=== PATIENT | male | born 1980 | race African-American/Black ===

== ENCOUNTER 2021-06-19 08:43 | Emergency (ER) | payer MEDICARE, OTHER ==
[~2021-06-19] VITALS: Ht 185.4 cm; Wt 127.0 kg
[~2021-06-19 08:43] MED LIST: CIPR500T94 PO; DOXY100T PO; HYDR-3164 PO; Hydrochlorothiazide PO; IBUP-1060 PO; Ibuprofen PO; LISI10TA PO
[2021-06-19] MEDS ORDERED: METOPROLOL IV PUSH 5 MG/5 ML VIAL. IVP ONE (09:15)
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
[2021-06-19] MEDS ORDERED: MORPHINE SULFATE 4 MG/ML INJ. IVP ONE (09:45)
[2021-06-19 09:58] LABS: BASO % 0 % (0-3); EOS # 0.2 x10^3/uL (0.0-0.7); EOS % 2 % (0-3); HEMATOCRIT 35.9 % (39.0-53.0); HEMOGLOBIN 12.2 g/dL (13.0-17.5); LYMPH # 1.9 x10^3/uL (1.0-4.8); LYMPH % 19 % (24-48); MEAN CORPUSCULAR HEMOGLOBIN 27 pg (25-35); MEAN CORPUSCULAR HGB CONC 34 g/dL (31-37); MEAN CORPUSCULAR VOLUME 80 fL (79-100); MONO # 0.6 x10^3/uL (0.0-1.1); MONO % 6 % (0-9); NEUT # 7.3 x10^3/uL (1.8-7.7); NEUT % 72 % (31-73); PLATELET COUNT 407 x10^3/uL (140-400); RED BLOOD COUNT 4.47 x10^6/uL (4.30-5.70); RED CELL DISTRIBUTION WIDTH 14.2 % (11.5-14.5); WHITE BLOOD COUNT 10.1 x10^3/uL (4.0-11.0)
[2021-06-19 10:04] LABS: CALCIUM 9.5 mg/dL (8.5-10.1); CREATININE 1.3 mg/dL (0.7-1.3); GFR 73.6; POTASSIUM 4.1 mmol/L (3.5-5.1)
[2021-06-19 10:12] LABS: ALBUMIN 3.2 g/dL (3.4-5.0); ALBUMIN/GLOBULIN RATIO 0.5 (1.0-1.7); MAGNESIUM 1.8 mg/dL (1.8-2.4); TOTAL BILIRUBIN 0.4 mg/dL (0.2-1.0); TOTAL PROTEIN 9.3 g/dL (6.4-8.2)
--- NOTE | 2021-06-19 10:23 | RAD ---
EXAM: Chest, single view. HISTORY: Chest pain. COMPARISON: 11/08/2014. FINDINGS: A frontal view of the chest is obtained. There is linear left lower lobe opacity likely due to atelectasis. There is no consolidation, pleural effusion or pneumothorax. The heart is normal in size for portable technique. IMPRESSION: Suspected linear left lower lobe atelectasis. Electronically signed by: Ria Richards MD (06/19/2021 10:20 AM) [id number]
[2021-06-19] MEDS ORDERED: IOHEXOL 350 MG/ML 100 ML VIAL. IV ONE (12:00)
[2021-06-19] MEDS ORDERED: CONTRAST GIVEN. MC PRN (12:00)
--- NOTE | 2021-06-19 12:35 | RAD ---
CTA OF THE CHEST WITH AND WITHOUT CONTRAST CTA OF THE ABDOMEN WITH AND WITHOUT CONTRAST Clinical indications: Chest pain and back pain. Hypertension. Possible dissection. Technique: Noncontrast helical CT scanning of the chest and abdomen through the iliac crests and aort ic bifurcation was performed. After IV infusion of 100 cc of Omnipaque 350, helical CT scanning of th e chest and abdomen through the iliac crests and aortic bifurcation was performed using the CTA thora cic/abdominal aortic protocol. Coronal and sagittal MIP reconstructions were generated. Using a MIP a lgorithm, a 3-D reconstruction of the thoracic and abdominal aorta was generated. PQRS compliance Statement One or more of the following individualized dose reduction techniques were utilized for this study: 1. Automated exposure control 2. Adjustment of the mA and/or kV according to patient size 3. Use of iterative reconstruction technique Comparison: November 08, 2014 CT of the chest. CHEST CTA: Opacification of the pulmonary arteries is not optimal to evaluate for pulmonary embolism. The study was performed for thoracic aorta evaluation. No focal aneurysmal dilatation or dissection/ intimal flap of the thoracic aorta is seen. Normal enhancement of the brachiocephalic artery and subc lavian arteries and proximal common carotid arteries is seen. Heart size is normal and no pericardial effusion is seen. No enlarged thoracic lymphadenopathy is seen. Linear atelectasis of both lower lob es and the inferior segment of the lingula of the left upper lobe is seen. No lung consolidation with air bronchograms or lung mass is seen otherwise. No pleural effusion or pneumothorax is seen. The pr oximal bronchial tree is patent. No lytic process or compression fracture is seen. IMPRESSION: No thoracic aortic dissection or aneurysm is seen. Bilateral lower lobe and lingular atelectasis. ABDOMEN CTA: The liver and spleen and pancreas and gallbladder are normal. No extrahepatic biliary du ctal dilatation is seen. No adrenal mass is evident. Both kidneys are normal without hydronephrosis. No focal aneurysmal dilatation or dissection or intimal flap of the abdominal aorta is seen. No signi ficant stenosis of the abdominal aorta is seen. Celiac artery and superior mesenteric artery and infe rior mesenteric artery and both main renal arteries enhance normally. No abnormally enlarged retroper itoneal lymphadenopathy is evident. Leandro hepatis lymph nodes are apparent. The largest lymph node me asures 32 mm in size seen on series 5 and image 109. This area is not completely seen on the previous CT study in 2013. However, another lymph node is seen anterior to the hepatic artery measuring 19 mm in size and was seen previously and is unchanged. Series [address] through the pelvis. T here are bilateral inguinal lymph nodes present seen best on series 11 and images 222 and 223. The la rgest on the left measures 25 mm in size. Largest on the right measures 24 mm in size. Small obturato r internus lymph nodes are seen bilaterally on image 185 measuring 25 mm on each side in AP dimension but only 8 mm transversely. No enlarged mesenteric lymphadenopathy is seen. IVC filter is apparent. No obstructive bowel pattern is seen. The appendix is normal. Terminal ileum is unremarkable. No free air or free fluid or mesenteric edema is seen. No lytic process is seen. No compression fracture of the lumbar spine is seen. IMPRESSION: No abdominal aortic dissection or aneurysm or stenosis is seen. Leandro hepatis lymph nodes and bilateral pelvic lymph nodes. Recommend short-term follow-up abdomen an d pelvis CT with IV contrast in 3-4 months to ensure stability. No acute abnormality of the abdomen or pelvis is seen. Electronically signed by: Gopal Santos MD (06/19/2021 12:33 PM) [id number]
[2021-06-19 13:25] VITALS: BP 190/118
[2021-06-19] MEDS ORDERED: LISI-130 PO (13:42)
[2021-06-19] MEDS ORDERED: NAPR-682 PO (13:42)
--- NOTE | 2021-06-19 13:59 | EKG ---
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
--- NOTE | 2021-06-19 14:00 | EKG ---
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
== END 2021-06-19 14:09 | disposition home or self-care (01) ==
LOC: ER 08:43
DX: I10 Essential (primary) hypertension (principal); M54.6 Pain in thoracic spine; G89.29 Other chronic pain; Z87.891 Personal history of nicotine dependence
CPT/HCPCS: 36415; 71045; 71275; 74175; 80053; 83690; 83735; 83880; 84484; 85025; 93005; 96374; 96375; 99285; J2270; J3490

== ENCOUNTER 2021-09-24 07:43 | Inpatient (IN) | payer MEDICARE, MEDICAID ==
[~2021-09-24] VITALS: Ht 182.9 cm; Wt 136.0 kg
[~2021-09-24 07:43] MED LIST changes: +LISI-130 PO; +NAPR-682 PO
[2021-09-24] MEDS ORDERED: MORPHINE SULFATE 10 MG/ML VIAL. IVP ONE (08:15)
[2021-09-24] MEDS ORDERED: KETOROLAC 15 MG/ML VIAL. IVP ONE (08:15)
[2021-09-24 08:19] LABS: BASO # 0.1 x10^3/uL (0.0-0.2); BASO % 1 % (0-3); EOS # 0.1 x10^3/uL (0.0-0.7); EOS % 1 % (0-3); HEMATOCRIT 31.4 % (39.0-53.0); HEMOGLOBIN 10.5 g/dL (13.0-17.5); LYMPH # 2.7 x10^3/uL (1.0-4.8); LYMPH % 15 % (24-48); MEAN CORPUSCULAR HEMOGLOBIN 26 pg (25-35); MEAN CORPUSCULAR HGB CONC 33 g/dL (31-37); MEAN CORPUSCULAR VOLUME 78 fL (79-100); MONO # 1.5 x10^3/uL (0.0-1.1); MONO % 8 % (0-9); NEUT # 13.6 x10^3/uL (1.8-7.7); NEUT % 75 % (31-73); PLATELET COUNT 588 x10^3/uL (140-400); RED BLOOD COUNT 4.05 x10^6/uL (4.30-5.70); RED CELL DISTRIBUTION WIDTH 14.4 % (11.5-14.5); WHITE BLOOD COUNT 18.1 x10^3/uL (4.0-11.0)
--- NOTE | 2021-09-24 08:27 | RAD ---
EXAM: XR CHEST 1V 09/24/2021 8:05 AM CLINICAL INDICATION: Edema, tachycardia COMPARISON: Chest radiograph 06/19/2021 TECHNIQUE: AP view of the chest FINDINGS: Heart is normal in size. Lungs are hypoexpanded. There are increased left basilar opacitie s. There are linear opacities in the right lung base. No pleural effusion or pneumothorax. No acute o sseous abnormality IMPRESSION: Increased left basilar opacities could be atelectasis or pneumonia. Linear opacities at t he right lung base are likely atelectasis. Electronically signed by: Davina Spencer MD (09/24/2021 8:24 AM) [id number]
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
--- NOTE | 2021-09-24 08:59 | EKG ---
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
[2021-09-24 10:03] LABS: CALCIUM 9.7 mg/dL (8.5-10.1); CREATININE 1.4 mg/dL (0.7-1.3); GFR 67.6; POTASSIUM 4.2 mmol/L (3.5-5.1)
[2021-09-24 10:09] LABS: ALBUMIN 2.4 g/dL (3.4-5.0); ALBUMIN/GLOBULIN RATIO 0.4 (1.0-1.7); TOTAL BILIRUBIN 1.2 mg/dL (0.2-1.0); TOTAL PROTEIN 8.9 g/dL (6.4-8.2)
[2021-09-24] MEDS ORDERED: FUROSEMIDE 40 MG/4 ML VIAL. IVP ONE (10:15)
[2021-09-24] MEDS ORDERED: ACETAMINOPHEN 325 MG TABLET. PO PRN ×2 (10:15→14:30)
[2021-09-24] MEDS ORDERED: HYDROmorphone 2 MG/ML VIAL IVP ONE (10:15)
[2021-09-24] MEDS ORDERED: cefTRIAXone IV Push 1 GM VIAL. IVP ONE (10:15)
[2021-09-24] MEDS ORDERED: MORPHINE SULFATE 4 MG/ML INJ. IVP PRN (10:15)
[2021-09-24] MEDS ORDERED: AZITHRMYCN 500MG IVPB FOR OMNI 250 ML IV ONE (10:15)
[2021-09-24] MEDS ORDERED: ONDANSETRON PF 4 MG/2 ML VIAL. IVP PRN ×2 (10:15→14:30)
[2021-09-24] MEDS ORDERED: cefTRIAXone IV Push 2 GM VIAL. IVP ONE (10:30)
[2021-09-24] MEDS ORDERED: IOHEXOL 300 MG/ML 100ML VIAL. IV ONE (11:00)
[2021-09-24] MEDS ORDERED: CONTRAST GIVEN. MC PRN (11:00)
--- NOTE | 2021-09-24 11:47 | RAD ---
CT LUMBAR SPINE W History: Back pain Technique: CT of the lumbar spine with intravenous contrast. Multiplanar reconstructions were perform ed. Comparison: CT angiogram chest, abdomen and pelvis 06/19/2021 Findings: There are 5 nonrib-bearing lumbar type vertebral bodies. Straightening of the normal lumbar lordosis. No spondylolisthesis. No vertebral body height loss. No fractures identified. There is facet hypertr ophy throughout the lower thoracic spine with moderate or greater foraminal stenosis at T10-T11 on th e left and T11-T12 on the right. There is a partially visualized infrarenal IVC filter. The paraspinal soft tissues are otherwise unre markable. T12-L1: Right greater than left facet hypertrophy. No significant spinal canal or neural foraminal st enosis. L1-L2: Minimal facet hypertrophy. No significant spinal canal or neural foraminal stenosis. L2-L3: Right greater than left facet hypertrophy causes moderate right and mild left neural foraminal stenosis. L3-L4: Mild disc space narrowing and left greater than right facet hypertrophy. Asymmetric right fora scott disc protrusion. Severe right neural foraminal and moderate to severe left neural foraminal diana rowing. L4-L5: Relatively preserved disc height. Small circumferential disc bulge with bilateral facet hypert rophy. Severe bilateral neural foraminal stenosis. L5-S1: Severe disc height loss and bilateral facet hypertrophy cause severe bilateral neural foramina l stenosis. Impression: 1. Advanced multilevel facet disease with degenerative disc disease relatively limited at L5-S1. Mod erate or greater neural foraminal stenoses at multiple levels bilaterally with potential for symptoma tic impingement of the exiting nerve roots. Correlate with radicular symptoms. Consider MRI lumbar sp ine for further evaluation. 2. No acute osseous abnormality identified in the lumbar spine. Exposure: One or more of the following individualized dose reduction techniques were utilized for thi s examination: 1. Automated exposure control 2. Adjustment of the mA and/or kV according to patient size 3. Use of iterative reconstruction technique. Electronically signed by: Raj Zamora MD (09/24/2021 11:45 AM) [id number]
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
[2021-09-24] MEDS ORDERED: PROCHLORPERAZINE 10 MG/2 ML VIAL. IV PRN (14:30)
[2021-09-24] MEDS ORDERED: ZOLPIDEM 5 MG TABLET. PO PRN (14:30)
[2021-09-24] MEDS ORDERED: DOCUSATE SODIUM 100 MG CAPSULE. PO PRN (14:30)
[2021-09-24] MEDS ORDERED: SENNOSIDES 8.6 MG TABLET PO PRN (14:30)
[2021-09-24] MEDS ORDERED: DEXTROSE 50% 25 GM / 50ML DISP.SYRIN. IV PRN (14:30)
[2021-09-24] MEDS ORDERED: oxyCODONE/APAP 5/325 1 TAB TABLET PO PRN (14:30)
[2021-09-24] MEDS ORDERED: LORazepam 0.5 MG TABLET PO PRN (14:30)
[2021-09-24] MEDS: IV NORMAL SALINE 1000ML BAG 1,000 ML IV SCH ×2 (14:43→23:50)
[2021-09-24] MEDS: ENOXAPARIN 40 MG/0.4 ML SYRINGE. SQ SCH (14:45)
[2021-09-24] MEDS: predniSONE 10 MG TABLET PO SCH (14:45)
[2021-09-24 15:00] VITALS: BP 141/81
[2021-09-24 15:54] LABS: BILIRUBIN,URINE NEGATIVE (NEG); CLARITY,URINE CLEAR; COLOR,URINE YELLOW; NITRITE,URINE NEGATIVE (NEG); PROTEIN,URINE 30 mg/dL (NEG-TRACE)
[2021-09-24] MEDS ORDERED: ALLO300T PO (16:06)
[2021-09-24 16:08] LABS: HYALINE CASTS, URINE FEW /HPF
[2021-09-24] MEDS: PANTOPRAZOLE IV PUSH 40 MG VIAL. IVP SCH (16:08)
[2021-09-24 16:09] LABS: BACTERIA,URINE 0 /HPF (0-FEW)
[2021-09-24] MEDS: oxyCODONE/APAP 5/325 1 TAB TABLET PO PRN ×2 (16:14→20:22)
--- NOTE | 2021-09-24 17:16 | RAD ---
XR SHOULDER_LEFT 2+ VIEWS History: Frozen shoulder. Comparison: None. Technique: 3 views the left shoulder. Findings: Osseous mineralization is normal. No acute fracture or dislocaton. Mild degenerative changes of the a cromioclavicular and glenohumeral joints. The subacromial space is preserved. There is subtle calcifi cation in the region of the superior labrum versus biceps anchor or rotator cuff myotendinous junctio ns. Hazy opacification of the left upper lobe. Impression: 1. Degenerative changes without acute osseous abnormality of the left shoulder. 2. Hazy opacification left upper lobe may be due to hypoventilation or edema/infiltrate. Electronically signed by: Raj Zamora MD (09/24/2021 5:14 PM) [id number]
[2021-09-24 19:00] VITALS: BP 126/74
[2021-09-24 23:25] VITALS: BP 133/78
[2021-09-25] MEDS: ENOXAPARIN 40 MG/0.4 ML SYRINGE. SQ SCH ×2 (03:15→13:50)
[2021-09-25 03:41] VITALS: BP 127/85
[2021-09-25 07:00] VITALS: BP 136/81
[2021-09-25] MEDS: cefTRIAXone IV Push 1 GM VIAL. IVP SCH (08:18)
[2021-09-25] MEDS: PANTOPRAZOLE IV PUSH 40 MG VIAL. IVP SCH (08:18)
[2021-09-25] MEDS: predniSONE 10 MG TABLET PO SCH (08:18)
[2021-09-25 08:22] LABS: CALCIUM 9.2 mg/dL (8.5-10.1); CREATININE 1.3 mg/dL (0.7-1.3); GFR 73.6; MAGNESIUM 2.1 mg/dL (1.8-2.4); PHOSPHORUS 4.8 mg/dL (2.6-4.7); POTASSIUM 4.2 mmol/L (3.5-5.1)
[2021-09-25 08:50] LABS: BASO % 0 % (0-3); EOS % 0 % (0-3); HEMATOCRIT 27.2 % (39.0-53.0); HEMOGLOBIN 8.7 g/dL (13.0-17.5); LYMPH # 1.4 x10^3/uL (1.0-4.8); LYMPH % 11 % (24-48); MEAN CORPUSCULAR HEMOGLOBIN 25 pg (25-35); MEAN CORPUSCULAR HGB CONC 32 g/dL (31-37); MEAN CORPUSCULAR VOLUME 79 fL (79-100); MONO # 1.2 x10^3/uL (0.0-1.1); MONO % 10 % (0-9); NEUT % 79 % (31-73); PLATELET COUNT 473 x10^3/uL (140-400); RED BLOOD COUNT 3.45 x10^6/uL (4.30-5.70); RED CELL DISTRIBUTION WIDTH 14.3 % (11.5-14.5); WHITE BLOOD COUNT 12.7 x10^3/uL (4.0-11.0)
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
[2021-09-25 11:00] VITALS: BP 139/81
[2021-09-25] MEDS: IV NORMAL SALINE 1000ML BAG 1,000 ML IV SCH (11:12)
[2021-09-25] MEDS: AZITHROMYCIN 500 MG in IV NORMAL SALINE 250ML 250 ML IV SCH (11:12)
[2021-09-25 15:00] VITALS: BP 136/87
[2021-09-25] MEDS: oxyCODONE/APAP 5/325 1 TAB TABLET PO PRN ×2 (15:40→20:48)
[2021-09-25 19:00] VITALS: BP 135/86
[2021-09-25] MEDS: LACTOBACILLUS RHAMNOSUS GG 1 CAPSULE. PO SCH (20:48)
[2021-09-25 23:00] VITALS: BP 145/86
[2021-09-26] MEDS: ENOXAPARIN 40 MG/0.4 ML SYRINGE. SQ SCH ×2 (02:45→13:58)
[2021-09-26 03:00] VITALS: BP 136/94
[2021-09-26 07:17] VITALS: BP 163/104
[2021-09-26] MEDS: PANTOPRAZOLE IV PUSH 40 MG VIAL. IVP SCH (07:18)
[2021-09-26] MEDS: oxyCODONE/APAP 5/325 1 TAB TABLET PO PRN ×2 (07:24→21:24)
[2021-09-26 07:55] LABS: CALCIUM 9.1 mg/dL (8.5-10.1); CREATININE 1.3 mg/dL (0.7-1.3); GFR 73.6; MAGNESIUM 1.9 mg/dL (1.8-2.4); POTASSIUM 3.7 mmol/L (3.5-5.1)
[2021-09-26 08:21] LABS: BASO # 0.1 x10^3/uL (0.0-0.2); BASO % 1 % (0-3); EOS # 0.1 x10^3/uL (0.0-0.7); EOS % 1 % (0-3); HEMATOCRIT 26.8 % (39.0-53.0); HEMOGLOBIN 8.9 g/dL (13.0-17.5); LYMPH % 17 % (24-48); MEAN CORPUSCULAR HEMOGLOBIN 26 pg (25-35); MEAN CORPUSCULAR HGB CONC 33 g/dL (31-37); MEAN CORPUSCULAR VOLUME 78 fL (79-100); MONO % 8 % (0-9); NEUT # 8.7 x10^3/uL (1.8-7.7); NEUT % 74 % (31-73); PLATELET COUNT 515 x10^3/uL (140-400); RED BLOOD COUNT 3.42 x10^6/uL (4.30-5.70); RED CELL DISTRIBUTION WIDTH 14.3 % (11.5-14.5); WHITE BLOOD COUNT 11.9 x10^3/uL (4.0-11.0)
[2021-09-26] MEDS: cefTRIAXone IV Push 1 GM VIAL. IVP SCH (10:10)
[2021-09-26] MEDS: LACTOBACILLUS RHAMNOSUS GG 1 CAPSULE. PO SCH ×2 (10:10→21:23)
[2021-09-26] MEDS: predniSONE 10 MG TABLET PO SCH (10:10)
[2021-09-26 11:00] VITALS: BP 139/88
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
[2021-09-26] MEDS: AZITHROMYCIN 500 MG in IV NORMAL SALINE 250ML 250 ML IV SCH (11:21)
[2021-09-26] MEDS: ALLOPURINOL 300 MG TABLET. PO SCH (12:37)
[2021-09-26] MEDS: LISINOPRIL 20 MG TABLET PO SCH (12:38)
[2021-09-26 14:22] VITALS: BP 141/93
[2021-09-26 19:00] VITALS: BP 140/94
[2021-09-26 23:00] VITALS: BP 138/86
[2021-09-27 03:00] VITALS: BP 142/92
[2021-09-27] MEDS: ENOXAPARIN 40 MG/0.4 ML SYRINGE. SQ SCH ×2 (05:33→15:33)
[2021-09-27 06:09] LABS: CALCIUM 9.2 mg/dL (8.5-10.1); CREATININE 1.3 mg/dL (0.7-1.3); GFR 73.6; MAGNESIUM 1.9 mg/dL (1.8-2.4); POTASSIUM 3.8 mmol/L (3.5-5.1)
[2021-09-27 06:39] LABS: BASO % 0 % (0-3); EOS # 0.1 x10^3/uL (0.0-0.7); EOS % 1 % (0-3); HEMATOCRIT 28.2 % (39.0-53.0); HEMOGLOBIN 9.2 g/dL (13.0-17.5); LYMPH % 13 % (24-48); MEAN CORPUSCULAR HEMOGLOBIN 25 pg (25-35); MEAN CORPUSCULAR HGB CONC 32 g/dL (31-37); MEAN CORPUSCULAR VOLUME 78 fL (79-100); MONO # 1.1 x10^3/uL (0.0-1.1); MONO % 13 % (0-9); NEUT # 5.7 x10^3/uL (1.8-7.7); NEUT % 73 % (31-73); PLATELET COUNT 492 x10^3/uL (140-400); RED BLOOD COUNT 3.62 x10^6/uL (4.30-5.70); RED CELL DISTRIBUTION WIDTH 14.1 % (11.5-14.5); WHITE BLOOD COUNT 7.9 x10^3/uL (4.0-11.0)
[2021-09-27 07:00] VITALS: BP 158/103
[2021-09-27] MEDS: ALLOPURINOL 300 MG TABLET. PO SCH (10:20)
[2021-09-27] MEDS: LISINOPRIL 20 MG TABLET PO SCH (10:20)
[2021-09-27] MEDS: LACTOBACILLUS RHAMNOSUS GG 1 CAPSULE. PO SCH ×2 (10:20→21:28)
[2021-09-27] MEDS: predniSONE 10 MG TABLET PO SCH (10:21)
[2021-09-27] MEDS: cefTRIAXone IV Push 1 GM VIAL. IVP SCH (10:21)
[2021-09-27] MEDS: PANTOPRAZOLE IV PUSH 40 MG VIAL. IVP SCH (10:21)
[2021-09-27] MEDS: hydroCHLOROthiazide 25 MG TABLET PO SCH (10:21)
[2021-09-27] MEDS: AZITHROMYCIN 500 MG in IV NORMAL SALINE 250ML 250 ML IV SCH (10:22)
[2021-09-27 11:00] VITALS: BP 155/112
[2021-09-27] MEDS: oxyCODONE/APAP 5/325 1 TAB TABLET PO PRN ×2 (11:06→21:29)
[2021-09-27 15:00] VITALS: BP 140/91
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
--- NOTE | 2021-09-27 16:01 | NUR ---
SW following. Discussed with RN, pt from home with spouse, room air, regular diet, COVID-19 negative. Therapy recommending SNF, pt declining. SW will discuss home health with patient. SW will continue to follow.
[2021-09-27 19:00] VITALS: BP 146/96
[2021-09-27 23:41] VITALS: BP 169/103
[2021-09-28 03:01] VITALS: BP 156/103
[2021-09-28 07:00] VITALS: BP 172/101
[2021-09-28] MEDS: ENOXAPARIN 40 MG/0.4 ML SYRINGE. SQ SCH (07:20)
[2021-09-28] MEDS: PANTOPRAZOLE IV PUSH 40 MG VIAL. IVP SCH (07:38)
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
[2021-09-28] MEDS ORDERED: AMLO-186 PO (08:41)
[2021-09-28] MEDS ORDERED: METH4TAB2 PO (08:41)
[2021-09-28] MEDS ORDERED: LORA0.5T96 PO (08:41)
[2021-09-28] MEDS ORDERED: OXYC1TAB15 PO (08:41)
--- NOTE | 2021-09-28 08:46 | SNU/HH DC ---
DISCHARGE WITH HOME HEALTH DISCHARGE INFORMATION: Final Diagnosis: Problems Medical Problems: (1) Back pain Status: Acute (2) Lymphedema Status: Acute (3) Pneumonia Status: Acute Condition on Discharge: Stable CODE STATUS: Code Status: Full HOME HEALTH: Face to Face: I certify this patient is under my care and that I, or a nurse practitioner or physician's assistant secretary working with me, had a face to face encounter that meets the physician face to face encounter requirements with this patient on []. Medical Complications: Other (Recent pneumonia/paraplegia) Nursing Home For: Assess Cardiopulm Status RN For Eval/Treatment: Yes Physical Therapy For: Evalulation/Treatment Occupational Therapy For: Evaluation/Treatment Home Health Aide For: Self-care MARINE MACHINIST For: Community Resources Pt Meets Homebound Status: Poor coordination w/ amb., Unsteady balance w/ amb, POST DISCHARGE ORDERS: Activity Instructions for Disc: Activity as tolerated Weight Bearing Status after Di: No restrictions DIET AFTER DISCHARGE: Cardiac CHECKS AFTER DISCHARGE: Checks after discharge: Check blood press - daily CERTIFICATION STATEMENT: Certification Statement: Certification Statement: Based on the above finding, I certify that this patient is confined to the home and needs intermittent shelter care, physical therapy and/or speech therapy, or continues to need occupational therapy.~ This patient is under my care, and I have initiated the establishment of the plan of care.~ This patient will be followed by myself or a community physician who will periodically review the plan of care. Home Meds Active Scripts Methylprednisolone (MEDROL) 4 Mg Tab.ds.pk, 1 PKG PO UD for ., #1 PKG Prov:CASTLE,NIAL K III DO 09/28/21 Lorazepam (ATIVAN) 0.5 Mg Tablet, 0.5 MG PO PRN Q6HRS PRN for ANXIETY / AGITATION for 10 Days, #20 TAB Prov:CASTLE,NIAL K III DO 09/28/21 Oxycodone/Apap 5-325 (PERCOCET 5-325 MG TABLET ) 1 Each Tablet, 1 TAB PO PRN Q4HRS PRN for MODERATE PAIN for 10 Days, #20 TAB Prov:CASTLE,NIAL K III DO 09/28/21 Amlodipine Besylate (AMLODIPINE BESYLATE) 5 Mg Tablet, 5 MG PO DAILY for . for 30 Days, #30 TAB Prov:CASTLE,NIAL K III DO 09/28/21 Naproxen Sodium (ANAPROX DS) 550 Mg Tablet, 1 TAB PO BID PRN for BACK PAIN for 15 Days, #30 TAB 0 Refills Prov:KULDEEP MONTEIRO DO 06/19/21 Lisinopril (LISINOPRIL) 40 Mg Tablet, 1 TAB PO DAILY, #30 TAB 2 Refills Prov:KULDEEP MONTEIRO DO 06/19/21 [Ibuprofen] 600 MG TABLET No Conflict Check, 600 MG PO TID, #30 Prov:ALLYSON GALO MD 10/14/15 [Hydrochlorothiazide] 25 MG TABLET No Conflict Check, 25 MG PO DAILY, #30 Prov:ALLYSON GALO MD 10/14/15 Hydrocodone/Apap 5-325 (NORCO 5-325 TABLET) 1 Each Tablet, 1-2 EACH PO PRN Q6HRS, #30 as needed for pain Prov:ALLYSON GALO MD 10/14/15 Ibuprofen (IBUPROFEN) 800 Mg Tablet, 800 MG PO PRN TID, #20 TAB take with food or milk to avoid upsetting stomach Prov:VIOLET TALAVERA MD 01/12/14 Reported Medications Allopurinol (ALLOPURINOL) 300 Mg Tablet, 300 MG PO DAILY for gout 09/24/21 Discontinued Scripts Lisinopril (PRINIVIL) 10 Mg Tablet, 10 MG PO DAILY, #30 Prov:ALLYSON GALO MD 10/14/15 Ciprofloxacin Hcl (CIPRO) 500 Mg Tablet, 1 TAB PO BID, #28 TAB Prov:ALLYSON GALO MD 10/14/15 Doxycycline Hyclate (DOXYCYCLINE HYCLATE) 100 Mg Tablet, 1 TAB PO BID, #28 TAB Prov:ALLYSON GALO MD 10/14/15 ANJU SINGH III DO Sep 28, 2021 08:46
[2021-09-28] MEDS ORDERED: CEFDINIR 300 MG CAPSULE PO SCH (09:00)
[2021-09-28] MEDS ORDERED: AZITHROMYCIN 250 MG TABLET. PO SCH (09:00)
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
[2021-09-28] MEDS: LACTOBACILLUS RHAMNOSUS GG 1 CAPSULE. PO SCH (10:24)
[2021-09-28] MEDS: LISINOPRIL 20 MG TABLET PO SCH (10:24)
[2021-09-28] MEDS: predniSONE 10 MG TABLET PO SCH (10:24)
[2021-09-28] MEDS: ALLOPURINOL 300 MG TABLET. PO SCH (10:24)
[2021-09-28] MEDS: hydroCHLOROthiazide 25 MG TABLET PO SCH (10:25)
[2021-09-28 11:00] VITALS: BP 171/113
[2021-09-28 15:44] VITALS: BP 151/112
--- NOTE | 2021-09-28 15:46 | NUR ---
Pt left unit at 1545 by wheelchair via private vehicle. Pt's IV removed without complication, VSS. Discharge paperwork discussed with pt and son at bedside. Additional questions addressed. Pt issued walker on discharge.
[2021-09-29] MEDS ORDERED: PANTOPRAZOLE 40 MG TABLET.DR. PO SCH (07:30)
== END 2021-09-28 15:54 | disposition home health service (06) | DRG 871 ==
LOC: ER 07:43 → 5 NORTH 10:15
PROVIDERS: ADMIT Internal Medicine; ATTEND Internal Medicine
DX: A41.9 Sepsis, unspecified organism (principal); J18.9 Pneumonia, unspecified organism; N17.0 Acute kidney failure with tubular necrosis; E87.1 Hypo-osmolality and hyponatremia; G82.20 Paraplegia, unspecified; Z68.41 Body mass index [BMI] 40.0-44.9, adult; E66.01 Morbid (severe) obesity due to excess calories; E86.9 Volume depletion, unspecified; E87.8 Other disorders of electrolyte and fluid balance, not elsewhere classified; G89.29 Other chronic pain; I10 Essential (primary) hypertension; I89.0 Lymphedema, not elsewhere classified; M1A.9XX0 Chronic gout, unspecified, without tophus (tophi); M47.819 Spondylosis without myelopathy or radiculopathy, site unspecified; M51.37 Other intervertebral disc degeneration, lumbosacral region; M75.00 Adhesive capsulitis of unspecified shoulder; E66.9 Obesity, unspecified
CPT/HCPCS: 36415; 71045; 72132; 73030; 80048; 80053; 81001; 83540; 83550; 83605; 83735; 83880; 84100; 84145; 84550; 85025; 87040; 87426; 87449; 93005; 96365; 96375; C9113; J0456; J0696; J1170; J1650; J1885; J1940; J2270; J7030; J7050; J7512; Q9967; U0003; U0005; 97530-GO; 97535-GO; 99285-25; G0378

== ENCOUNTER 2021-10-20 09:53 | Inpatient (IN) | payer MEDICARE, MEDICAID ==
[~2021-10-20] VITALS: Ht 188 cm; Wt 128.0 kg
[~2021-10-20 09:53] MED LIST changes: +ALLO300T PO; +AMLO-186 PO; +LORA0.5T96 PO; +METH4TAB2 PO; +OXYC1TAB15 PO
--- NOTE | 2021-10-20 10:53 | RAD ---
EXAM: AP View of the chest DATE: 10/20/2021 10:36 AM INDICATION: Reason: leg swelling / Spl. Instructions: / History: COMPARISON: No Prior FINDINGS: The heart is mildly enlarged. Mediastinal and hilar contours are normal. Patchy bilateral lung base airspace opacities likely consolidative process such as pneumonia. No pleural effusion or pneumothorax. IMPRESSION: 1. Patchy bilateral lung base airspace opacities likely consolidative process such as pneumonia. Electronically signed by: Scout Chang MD (10/20/2021 10:51 AM) [id number]
[2021-10-20 10:56] LABS: BASO # 0.1 x10^3/uL (0.0-0.2); BASO % 0 % (0-3); EOS % 0 % (0-3); HEMATOCRIT 27.4 % (39.0-53.0); LYMPH # 1.5 x10^3/uL (1.0-4.8); LYMPH % 11 % (24-48); MEAN CORPUSCULAR HEMOGLOBIN 25 pg (25-35); MEAN CORPUSCULAR HGB CONC 33 g/dL (31-37); MEAN CORPUSCULAR VOLUME 76 fL (79-100); MONO % 14 % (0-9); NEUT # 10.2 x10^3/uL (1.8-7.7); NEUT % 74 % (31-73); PLATELET COUNT 371 x10^3/uL (140-400); RED BLOOD COUNT 3.59 x10^6/uL (4.30-5.70); RED CELL DISTRIBUTION WIDTH 14.8 % (11.5-14.5); WHITE BLOOD COUNT 13.7 x10^3/uL (4.0-11.0)
[2021-10-20 11:08] LABS: CALCIUM 9.5 mg/dL (8.5-10.1); CREATININE 1.3 mg/dL (0.7-1.3); GFR 73.6; POTASSIUM 4.3 mmol/L (3.5-5.1)
[2021-10-20 11:14] LABS: ALBUMIN 1.9 g/dL (3.4-5.0); ALBUMIN/GLOBULIN RATIO 0.3 (1.0-1.7); TOTAL BILIRUBIN 1.4 mg/dL (0.2-1.0); TOTAL PROTEIN 8.5 g/dL (6.4-8.2)
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
[2021-10-20] MEDS ORDERED: IV NORMAL SALINE 1000ML BAG 1,000 ML IV ONE (11:30)
[2021-10-20 12:07] LABS: % BANDS 1 % (0-9); % BASOS 1 % (0-3); % EOS 1 % (0-5); % LYMPHS 9 % (24-48); % MONOS 12 % (0-10); % SEGS 76 % (35-66); PLT ESTIMATE ADEQUATE (ADEQUATE)
[2021-10-20 13:17] LABS: BILIRUBIN,URINE SMALL (NEG); CLARITY,URINE CLEAR; COLOR,URINE AMBER; NITRITE,URINE NEGATIVE (NEG); PROTEIN,URINE 100 mg/dL (NEG-TRACE)
[2021-10-20 13:22] LABS: BARBITURATES NEG (NEG); BENZODIAZEPINES NEG (NEG); CANNABINOIDS NEG (NEG); COCAINE NEG (NEG); METHADONE NEG (NEG); OPIATES NEG (NEG); PHENCYCLIDINE NEG (NEG)
[2021-10-20 13:28] LABS: AMPHETAMINE/METHAMPHETAMINE NEG (NEG)
[2021-10-20] MEDS ORDERED: cefTRIAXone IV Push 1 GM VIAL. IVP ONE (13:30)
[2021-10-20] MEDS ORDERED: AZITHRMYCN 500MG IVPB FOR OMNI 250 ML IV ONE (13:30)
[2021-10-20] MEDS ORDERED: VANCOMYCIN 1GM IVPB FOR OMNI 250 ML IV ONE (13:30)
[2021-10-20] MEDS ORDERED: ACETAMINOPHEN 500 MG TABLET PO ONE (13:30)
[2021-10-20 13:31] LABS: BACTERIA,URINE 0 /HPF (0-FEW); RBC,URINE 0 /HPF (0-2); WBC,URINE 0 /HPF (0-4)
[2021-10-20] MEDS ORDERED: fentaNYL PF VIAL 100 MCG/2 ML VIAL IVP ONE (13:45)
[2021-10-20] MEDS ORDERED: ACETAMINOPHEN 325 MG TABLET. PO PRN (13:45)
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
[2021-10-20] MEDS: IPRATRPIUM/ALBUTEROL 0.5/2.5MG 3 ML NEBU. NEB SCH (19:40)
[2021-10-20] MEDS ORDERED: NAPROXEN SODIUM PO PRN (20:45)
[2021-10-20] MEDS: IV NORMAL SALINE 1000ML BAG 1,000 ML IV SCH (21:10)
[2021-10-20] MEDS: LORazepam 0.5 MG TABLET PO PRN (21:11)
[2021-10-20] MEDS: IBUPROFEN 400 MG TABLET. PO PRN (21:11)
[2021-10-20] MEDS: HYDROcodone/APAP 5/325MG 1 TAB TABLET PO PRN (21:11)
[2021-10-20 22:57] VITALS: BP 100/69
[2021-10-21] MEDS: HYDROcodone/APAP 5/325MG 1 TAB TABLET PO PRN ×3 (06:00→21:41)
[2021-10-21 07:00] VITALS: BP 148/107
[2021-10-21] MEDS: IPRATRPIUM/ALBUTEROL 0.5/2.5MG 3 ML NEBU. NEB SCH ×4 (08:00→20:49)
[2021-10-21] MEDS: hydroCHLOROthiazide 25 MG TABLET PO SCH (09:41)
[2021-10-21] MEDS: ALLOPURINOL 300 MG TABLET. PO SCH (09:41)
[2021-10-21] MEDS: LISINOPRIL 20 MG TABLET PO SCH (09:41)
[2021-10-21 11:00] VITALS: BP 141/95
--- NOTE | 2021-10-21 11:50 | EKG ---
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
--- NOTE | 2021-10-21 11:57 | PDOC ---
[employer] PROGRESS NOTE Date of Service DOS: DATE: 10/21/21 TIME: 11:54 Chief Complaint Chief Complaint Pneumonia Hyponatremia Hypoalbuminemia History of Present Illness History of Present Illness 10/21/2021 Patient seen and examined Chart reviewed Discussed with RN Patient is feeling good today. Discussed his chronic LE lesions. Appear hyperkeratotic in nature. Vitals/I&O Vitals/I&O: Vital Signs Date Time Temp Pulse Resp B/P (MAP) Pulse Ox O2 Delivery O2 Flow Rate FiO2 10/21/21 09:41 95 148/107 10/21/21 07:00 97.4 18 93 Room Air 97.4 I & O 10/20/21 10/20/21 10/21/21 15:00 23:00 07:00 Intake Total 1500 ml Output Total 700 ml 400 ml Balance 1500 ml -700 ml -400 ml Physical Exam General: Alert, Cooperative, No acute distress Heart: Regular rate Lungs: Clear Abdomen: Normal bowel sounds Extremities: No clubbing Skin: Other (extensive bilateral LE hyperkeratotic lesions) Labs Labs: Laboratory Tests Test 10/20/21 12:07 10/20/21 13:00 10/20/21 20:19 10/21/21 08:19 SARS-CoV-2 RNA (DEBBIE) Negative (Negative) SARS-CoV-2 Antigen (Rapid) Negative (NEGATIVE) Urine Collection Type Unknown Urine Color Cassie Urine Clarity Clear Urine pH 6.0 (<5.0-8.0) Urine Specific [place] 1.015 (1.000-1.030) Urine Protein 100 mg/dL (NEG-TRACE) Urine Glucose (UA) Negative mg/dL (NEG) Urine Ketones (Stick) Negative mg/dL (NEG) Urine Blood Trace (NEG) Urine Nitrite Negative (NEG) Urine Bilirubin Small (NEG) Urine Urobilinogen Dipstick 1.0 mg/dL (0.2 mg/dL) Urine Leukocyte Esterase Negative (NEG) Urine RBC 0 /HPF (0-2) Urine WBC 0 /HPF (0-4) Urine Squamous Epithelial Cells Few /LPF Urine Bacteria 0 /HPF (0-FEW) Urine Mucus Slight /LPF Urine Opiates Screen Neg (NEG) Urine Methadone Screen Neg (NEG) Urine Barbiturates Neg (NEG) Urine Phencyclidine Screen Neg (NEG) Urine Amphetamine/Methamphetamine Neg (NEG) Urine Benzodiazepines Screen Neg (NEG) Urine Cocaine Screen Neg (NEG) Urine Cannabinoids Screen Neg (NEG) Urine Ethyl Alcohol Neg (NEG) Glucose (Fingerstick) 91 mg/dL (70-99) 88 mg/dL (70-99) Assessment and Plan Assessmemt and Plan Problems Medical Problems: (1) Hypoalbuminemia Status: Acute (2) Hyponatremia Status: Acute (3) Pneumonia Status: Acute Bilateral pneumonia Plan: IV abx breathing treatments supplemental oxygen PRN home meds DVT prophylaxis Full code Trend his labs IV normal saline. Comment Review of Relevant I have reviewed the following items keyla (where applicable) has been applied. Medications: Current Medications Medications (Trade) Dose Ordered Sig/Sharon Route PRN Reason Start Time Stop Time Status Last Admin Dose Admin Ceftriaxone Sodium (Rocephin) 1 gm 1X ONCE IVP 10/20/21 13:30 10/20/21 13:31 DC 10/20/21 13:30 Azithromycin 250 ml @ 250 mls/hr 1X ONCE IV 10/20/21 13:30 10/20/21 14:29 DC 10/20/21 13:30 Vancomycin HCl 250 ml @ 250 mls/hr 1X ONCE IV 10/20/21 13:30 10/20/21 14:29 DC 10/20/21 13:30 Acetaminophen (Tylenol) 1,000 mg 1X ONCE PO 10/20/21 13:30 10/20/21 13:31 DC 10/20/21 13:30 Fentanyl Citrate (Fentanyl 2ml Vial) 50 mcg 1X ONCE IVP 10/20/21 13:45 10/20/21 13:46 DC 10/20/21 13:45 Sodium Chloride 1,000 ml @ 75 mls/hr [id number] IV 10/20/21 16:45 10/20/21 21:10 Allopurinol (Zyloprim) 300 mg DAILY PO 10/21/21 09:00 10/21/21 09:41 Amlodipine Besylate (Norvasc) 5 mg DAILY PO 10/21/21 09:00 10/21/21 09:41 Lisinopril (Prinivil) 40 mg DAILY PO 10/21/21 09:00 10/21/21 09:41 Lorazepam (Ativan) 0.5 mg PRN Q6HRS PRN PO ANXIETY / AGITATION 10/20/21 20:45 10/20/21 21:11 Ibuprofen (Motrin) 800 mg PRN TID PRN PO INFLAMMATION 10/20/21 20:45 10/20/21 21:11 Hydrochlorothiazide (Hydrodiuril) 25 mg DAILY PO 10/21/21 09:00 10/21/21 09:41 Acetaminophen/ Hydrocodone Bitart (Lortab 5/325) 2 tab PRN Q6HRS PRN PO SEVERE PAIN 10/20/21 21:00 10/21/21 06:00 Justifications for Admission Other Justification , 8Back pain and TOMAS ANJU SINGH III DO Oct 21, 2021 11:57
[2021-10-21] MEDS: IV NORMAL SALINE 1000ML BAG 1,000 ML IV SCH ×2 (12:34→21:54)
[2021-10-21] MEDS ORDERED: VANCOMYCIN PER PHARMACY MC PRN (14:45)
[2021-10-21 15:00] VITALS: BP 140/91
[2021-10-21] MEDS ORDERED: VANCOMYCIN 2 GM in IV NORMAL SALINE 500ML BAG 500 ML IV ONE (15:00)
[2021-10-21] MEDS: oxyCODONE/APAP 5/325 1 TAB TABLET PO PRN (15:21)
[2021-10-21] MEDS: cefTRIAXone IV Push 1 GM VIAL. IVP SCH (15:22)
--- NOTE | 2021-10-21 16:25 | NUR ---
Wound Care Pt seen for wound care consult re: BLE skin. Upon assessing pt, he became anxious, stating he didn't want me moving his legs because they hurt and also didn't want me laughing at him for letting his legs get to that point. Reassured pt that this RN was there to help with skin care, and recommended Ammonium Lactate lotion to aide in removal of hyperkeratotic skin that is built up on his legs. Educated pt that he would have to agree to the nurses applying the lotion BID and he would have to be agreeable to them lifting his legs for the treatment, pt v/u and amenable to start treatment tomorrow morning, but asked if this RN could do all lotion applications. Informed pt that wound care would come tomorrow, but pt would have to allow staff to also apply lotion, as wound care is not available BID for treatment, pt v/u. Spoke with Dr. Montemayor, Ammonium Lactate lotion ordered for tomorrow morning. Pt also c/o R hand IV coming out. Upon assessment, plastic IV catheter was kinked and pulled away from vein, no longer patent. Pt requested removal, IV removed, tip intact, pressure held, no bleeding noted, pt's IV Vancomycin transferred to R AC line. POC discussed with GEOFFREY Soler.
--- NOTE | 2021-10-21 17:29 | NUR ---
Pharmacy Vancomycin Dosing Note S:Consulted to monitor and dose vancomycin started 10/21/21. O:SANTHOSH LOVE is a 41 year old M with Bacteremia, Pneumonia Height: 6 feet, 2 inches Weight: 127.0 kg [place] Body Weight: 82.20 Adjusted Body Weight: 100.12 Dosing Weight: Actual LABS: Last BUN: 19 Last Creatinine: 1.3 Creatinine Clearance: 106 mL/min Last WBC: 13.7 Last Procalcitonin: Tmax (past 24 hours): 101.7 Microbiology: Blood: GPC 1/4 bottles I/O: 1500/1100 Last dose given 10/21/21 at 1522 Vancomycin Dosing: Loading Dose: 2000 mg x1 Dosing Weight: Actual Target Trough: 15-20 A: Based on: weight and renal function P: 1. Begin Vancomycin 1500 mg IV q12h 2. Follow up Trough level on 10/23/21 at 0330 3. Pharmacy will continue to monitor, follow and adjust therapy as needed. Mariella Noguera [facility], 10/21/21 [id number]
[2021-10-21 19:00] VITALS: BP 158/91
--- NOTE | 2021-10-21 19:24 | NUR ---
at approximately 1230 this RN administered 2 hydrocodone tabs to patient along with NS. A couple hours later when RN looked at EMAR noticed that the hydrocodone hadnt been shown to be scanned and administered. RN called pharmacy to see the time that the hydrocodone was pulled from [facility] and was told it was pulled at 1231. This note is to document that the hydrocodone was indeed given to patient at approximately 1234 at the same time NS was scanned and given.
[2021-10-21] MEDS: IBUPROFEN 400 MG TABLET. PO PRN (21:41)
[2021-10-21] MEDS: LACTOBACILLUS RHAMNOSUS GG 1 CAPSULE. PO SCH (21:41)
[2021-10-21] MEDS: LORazepam 0.5 MG TABLET PO PRN (21:41)
[2021-10-21] MEDS: ENOXAPARIN 40 MG/0.4 ML SYRINGE. SQ SCH (21:43)
[2021-10-21 23:00] VITALS: BP 151/97
[2021-10-22 02:45] VITALS: BP 140/86
[2021-10-22] MEDS ORDERED: VANCOMYCIN 1.5 GM in IV NORMAL SALINE 500ML BAG 500 ML IV SCH (04:00)
[2021-10-22 05:26] LABS: BASO # 0.1 x10^3/uL (0.0-0.2); BASO % 0 % (0-3); EOS # 0.1 x10^3/uL (0.0-0.7); EOS % 1 % (0-3); HEMATOCRIT 23.5 % (39.0-53.0); HEMOGLOBIN 7.8 g/dL (13.0-17.5); LYMPH # 1.7 x10^3/uL (1.0-4.8); LYMPH % 12 % (24-48); MEAN CORPUSCULAR HEMOGLOBIN 26 pg (25-35); MEAN CORPUSCULAR HGB CONC 33 g/dL (31-37); MEAN CORPUSCULAR VOLUME 77 fL (79-100); MONO # 1.2 x10^3/uL (0.0-1.1); MONO % 9 % (0-9); NEUT # 11.3 x10^3/uL (1.8-7.7); NEUT % 79 % (31-73); PLATELET COUNT 392 x10^3/uL (140-400); RED BLOOD COUNT 3.04 x10^6/uL (4.30-5.70); RED CELL DISTRIBUTION WIDTH 14.4 % (11.5-14.5); WHITE BLOOD COUNT 14.4 x10^3/uL (4.0-11.0)
[2021-10-22 05:43] LABS: CALCIUM 9.3 mg/dL (8.5-10.1); CREATININE 1.1 mg/dL (0.7-1.3); GFR 89.3; POTASSIUM 4.2 mmol/L (3.5-5.1)
[2021-10-22 07:00] VITALS: BP 123/76
[2021-10-22] MEDS: IPRATRPIUM/ALBUTEROL 0.5/2.5MG 3 ML NEBU. NEB SCH ×4 (07:55→20:00)
[2021-10-22] MEDS: ALLOPURINOL 300 MG TABLET. PO SCH (08:38)
[2021-10-22] MEDS: hydroCHLOROthiazide 25 MG TABLET PO SCH (08:38)
[2021-10-22] MEDS: LISINOPRIL 20 MG TABLET PO SCH (08:38)
[2021-10-22] MEDS: LACTOBACILLUS RHAMNOSUS GG 1 CAPSULE. PO SCH ×2 (08:38→21:07)
[2021-10-22] MEDS: IV NORMAL SALINE 1000ML BAG 1,000 ML IV SCH (08:45)
[2021-10-22] MEDS: AMMONIUM LACTATE 12% TOPICAL LOTION 225GM BOTTLE. TP SCH ×2 (09:00→21:13)
[2021-10-22] MEDS: HYDROcodone/APAP 5/325MG 1 TAB TABLET PO PRN ×2 (09:09→16:25)
[2021-10-22 11:00] VITALS: BP 128/86
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
--- NOTE | 2021-10-22 11:46 | PDOC ---
[facility] PROGRESS NOTE Date of Service DOS: DATE: 10/22/21 TIME: 11:44 Chief Complaint Chief Complaint Pneumonia Hyponatremia Hypoalbuminemia History of Present Illness History of Present Illness 10/22/2021 Patient seen and examined Chart reviewed Discussed with RN Patient worsened yesterday after our examination. He spiked a fever and labs showed elevated WBC. Vancomycin was added to his abx regimen and ID was consulted. He feels better today but still a bit feverish. Vitals/I&O Vitals/I&O: Vital Signs Date Time Temp Pulse Resp B/P (MAP) Pulse Ox O2 Delivery O2 Flow Rate FiO2 10/22/21 09:49 Room Air 10/22/21 08:38 103 123/76 10/22/21 07:57 91 10/22/21 07:00 98.0 19 98.0 I & O 10/21/21 10/21/21 10/22/21 15:00 23:00 07:00 Intake Total 500 ml Output Total 790 ml 600 ml 200 ml Balance -790 ml -600 ml 300 ml Physical Exam General: Alert, Cooperative, No acute distress Heart: Regular rate Lungs: Clear Abdomen: Normal bowel sounds Extremities: No clubbing Skin: Other (extensive bilateral LE hyperkeratotic lesions) Labs Labs: Laboratory Tests Test 10/21/21 11:57 10/21/21 16:55 10/21/21 19:05 10/22/21 04:20 Glucose (Fingerstick) 75 mg/dL (70-99) 96 mg/dL (70-99) 101 mg/dL (70-99) White Blood Count 14.4 x10^3/uL (4.0-11.0) Red Blood Count 3.04 x10^6/uL (4.30-5.70) Hemoglobin 7.8 g/dL (13.0-17.5) Hematocrit 23.5 % (39.0-53.0) Mean Corpuscular Volume 77 fL (79-100) Mean Corpuscular Hemoglobin 26 pg (25-35) Mean Corpuscular Hemoglobin Concent 33 g/dL (31-37) Red Cell Distribution Width 14.4 % (11.5-14.5) Platelet Count 392 x10^3/uL (140-400) Neutrophils (%) (Auto) 79 % (31-73) Lymphocytes (%) (Auto) 12 % (24-48) Monocytes (%) (Auto) 9 % (0-9) Eosinophils (%) (Auto) 1 % (0-3) Basophils (%) (Auto) 0 % (0-3) Neutrophils # (Auto) 11.3 x10^3/uL (1.8-7.7) Lymphocytes # (Auto) 1.7 x10^3/uL (1.0-4.8) Monocytes # (Auto) 1.2 x10^3/uL (0.0-1.1) Eosinophils # (Auto) 0.1 x10^3/uL (0.0-0.7) Basophils # (Auto) 0.1 x10^3/uL (0.0-0.2) Sodium Level 134 mmol/L (136-145) Potassium Level 4.2 mmol/L (3.5-5.1) Chloride Level 97 mmol/L (98-107) Carbon Dioxide Level 28 mmol/L (21-32) Anion Gap 9 (6-14) Blood Urea Nitrogen 20 mg/dL (8-26) Creatinine 1.1 mg/dL (0.7-1.3) Estimated GFR (Cockcroft-Gault) 89.3 Glucose Level 99 mg/dL (70-99) Uric Acid 5.0 mg/dL (3.5-7.2) Calcium Level 9.3 mg/dL (8.5-10.1) Creatine Kinase 46 U/L (39-308) Test 10/22/21 07:03 Glucose (Fingerstick) 94 mg/dL (70-99) Assessment and Plan Assessmemt and Plan Problems Medical Problems: (1) Hypoalbuminemia Status: Acute (2) Hyponatremia Status: Acute (3) Pneumonia Status: Acute Bilateral pneumonia Plan: IV abx breathing treatments supplemental oxygen PRN consult podiatry for onychomycosis wound care appreciate ID input home meds DVT prophylaxis Full code Trend his labs IV normal saline. Comment Review of Relevant I have reviewed the following items keyla (where applicable) has been applied. Medications: Current Medications Medications (Trade) Dose Ordered Sig/Sharon Route PRN Reason Start Time Stop Time Status Last Admin Dose Admin Ceftriaxone Sodium (Rocephin) 1 gm Q24H IVP 10/21/21 13:00 10/21/21 15:22 Lactobacillus Rhamnosus (Culturelle) 1 cap BID PO 10/21/21 21:00 10/22/21 08:38 Enoxaparin Sodium (Lovenox 40mg Syringe) 40 mg Q24H SQ 10/21/21 21:00 10/21/21 21:43 Vancomycin HCl (Vanco Per Pharmacy) 1 each PRN DAILY PRN MC SEE COMMENTS 10/21/21 14:45 10/22/21 10:33 DC 10/21/21 17:19 Vancomycin HCl 2 gm/Sodium Chloride 500 ml @ 250 mls/hr 1X ONCE IV 10/21/21 15:00 10/21/21 16:59 DC 10/21/21 15:22 Vancomycin HCl 1.5 gm/Sodium Chloride 500 ml @ 250 mls/hr Q12H IV 10/22/21 04:00 10/22/21 10:30 DC 10/22/21 02:53 Lactic Acid (Lac-Hydrin) 1 daisy BID TP 10/22/21 09:00 10/22/21 09:00 Justifications for Admission Other Justification , 8Back pain and TOMAS ANJU SINGH K III DO Oct 22, 2021 11:46
[2021-10-22] MEDS: cefTRIAXone IV Push 1 GM VIAL. IVP SCH (13:13)
[2021-10-22] MEDS: oxyCODONE/APAP 5/325 1 TAB TABLET PO PRN ×2 (13:22→21:09)
[2021-10-22 15:00] VITALS: BP 162/95
--- NOTE | 2021-10-22 16:05 | NUR ---
Wound Care Returned to see pt and assess if pt allowed RN to apply Ammonium Lactate lotion to legs. Per RN report, pt declined medication this morning. Pt agreeable to allow this RN to apply lotion to legs gently, as he is c/o significant burning and pain when touched. Pt instructed this RN to cut his pajama pants to his knees so the lotion didn't get on his clothes, and requested pads be placed below legs to avoid lotion getting on his bed. All of this completed, pt tolerated lotion application well, and was agreeable to allowing staff to administer lotion BID. Also instructed pt that he would need to move and change position to prevent skin breakdown to other areas, pt v/u but declined repositioning at this time d/t pain. Will f/u with pt on Monday.
[2021-10-22 19:00] VITALS: BP 143/80
[2021-10-22] MEDS: DOXYCYCLINE HYCLATE 100 MG TABLET PO SCH (21:07)
[2021-10-22] MEDS: ENOXAPARIN 40 MG/0.4 ML SYRINGE. SQ SCH (21:09)
[2021-10-22 23:00] VITALS: BP 123/81
[2021-10-23] MEDS: HYDROcodone/APAP 5/325MG 1 TAB TABLET PO PRN (00:41)
--- NOTE | 2021-10-23 00:45 | NUR ---
Pt unable to turn in bed, pt reports pain is too much in his legs, even after receiving oral pain med. Pt does not tolerate being any lower than 45 degrees, and is unable to use his left arm much at all. Pt is able to only move left arm slightly, and uses his right arm to reposition the left arm. Pt states that his weakness, inability to move left arm and both legs is why he came to the hospital and he is concerned that the doctors are not addressing this health concern. Explained to pt that he is diagnosed with pneumonia and is receiving antibiotics for it, but pt still upset that his immobility is not being addressed. Explained that PT/OT was ordered today. Pt not able to tolerate being moved in bed, refuses to have pillows under legs or to turn d/t pain. Pt wanted pillow placed further down his back and HOB still elevated. Will monitor.
[2021-10-23] MEDS: IV NORMAL SALINE 1000ML BAG 1,000 ML IV SCH ×2 (01:26→11:45)
[2021-10-23] MEDS: MORPHINE SULFATE 2 MG/ML INJ. IV PRN ×4 (01:27→17:33)
[2021-10-23 03:00] VITALS: BP 124/81
[2021-10-23 07:00] VITALS: BP 143/88
[2021-10-23] MEDS: IPRATRPIUM/ALBUTEROL 0.5/2.5MG 3 ML NEBU. NEB SCH ×4 (07:34→20:43)
--- NOTE | 2021-10-23 07:51 | PDOC ---
Infectious Disease Note Subjective: Subjective Patient feels better but continues to complain of lower extremity weakness and pain and left shoulder pain Vital Signs: Vital Signs Vital Signs Date Time Temp Pulse Resp B/P (MAP) Pulse Ox O2 Delivery O2 Flow Rate FiO2 10/23/21 07:34 96 Nasal Cannula 2.0 10/23/21 03:00 98.7 110 20 124/81 (95) 98.7 Physical Exam: PHYSICAL EXAM GENERAL: Alert, oriented x 3 male, lying in bed comfortably, in no acute distress. HEENT: Normocephalic, atraumatic. Anicteric. NECK: Supple. LUNGS: Clear bilaterally. HEART: S1, S2. ABDOMEN: Soft, obese. Bowel sounds present. EXTREMITIES: Chronic lymphedema, hyperkeratotic lesions. No skin breakdown noted. NEUROLOGIC: Alert, awake, oriented x 3, generalized weakness. PSYCHIATRIC: Calm and cooperative. Medications: Inpatient Meds: Medications reviewed. Labs: Lab Laboratory Tests Test 10/22/21 11:47 10/22/21 16:52 10/22/21 20:50 Glucose (Fingerstick) 88 mg/dL (70-99) 93 mg/dL (70-99) 99 mg/dL (70-99) Objective: Assessment: 1. Leukocytosis. 2. Bacteremia, 1/4 bottles present on admission ,coag neg zahraah michaelley contaminant. 3. Generalized weakness. 4. Chronic lymphedema. 5. Hyponatremia. 6. History of gout. 7. Anemia. 8. Chronic left upper extremity pain from adhesive capsulitis. Plan: Plan of Care cont ceftriaxone and doxycycline PT and OT as tolerated Pain control per primary Continue supportive care. SHELBI HOLDER MD Oct 23, 2021 07:50
[2021-10-23 07:53] LABS: BASO # 0.1 x10^3/uL (0.0-0.2); BASO % 1 % (0-3); EOS # 0.1 x10^3/uL (0.0-0.7); EOS % 1 % (0-3); HEMATOCRIT 24.8 % (39.0-53.0); HEMOGLOBIN 8.3 g/dL (13.0-17.5); LYMPH # 1.5 x10^3/uL (1.0-4.8); LYMPH % 10 % (24-48); MEAN CORPUSCULAR HEMOGLOBIN 26 pg (25-35); MEAN CORPUSCULAR HGB CONC 34 g/dL (31-37); MEAN CORPUSCULAR VOLUME 77 fL (79-100); MONO # 1.3 x10^3/uL (0.0-1.1); MONO % 9 % (0-9); NEUT % 80 % (31-73); PLATELET COUNT 535 x10^3/uL (140-400); RED BLOOD COUNT 3.23 x10^6/uL (4.30-5.70); RED CELL DISTRIBUTION WIDTH 14.7 % (11.5-14.5)
[2021-10-23] MEDS: ALLOPURINOL 300 MG TABLET. PO SCH (08:27)
[2021-10-23] MEDS: DOXYCYCLINE HYCLATE 100 MG TABLET PO SCH ×2 (08:28→21:31)
[2021-10-23] MEDS: LISINOPRIL 20 MG TABLET PO SCH (08:28)
[2021-10-23] MEDS: LACTOBACILLUS RHAMNOSUS GG 1 CAPSULE. PO SCH ×2 (08:28→21:31)
[2021-10-23] MEDS: oxyCODONE/APAP 5/325 1 TAB TABLET PO PRN ×2 (08:29→15:04)
[2021-10-23] MEDS: AMMONIUM LACTATE 12% TOPICAL LOTION 225GM BOTTLE. TP SCH ×3 (08:30→21:00)
[2021-10-23] MEDS: hydroCHLOROthiazide 25 MG TABLET PO SCH (08:30)
[2021-10-23 11:00] VITALS: BP 136/84
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
[2021-10-23] MEDS: MORPHINE ER 15 MG TABLET.ER PO SCH ×2 (11:44→21:31)
[2021-10-23] MEDS: cefTRIAXone IV Push 1 GM VIAL. IVP SCH (11:45)
[2021-10-23 15:00] VITALS: BP 142/90
[2021-10-23 19:00] VITALS: BP 146/101
[2021-10-23] MEDS: ENOXAPARIN 40 MG/0.4 ML SYRINGE. SQ SCH (21:32)
[2021-10-23 22:58] VITALS: BP 152/100
[2021-10-24] MEDS: IV NORMAL SALINE 1000ML BAG 1,000 ML IV SCH ×2 (00:38→17:27)
[2021-10-24 02:51] VITALS: BP 156/106
[2021-10-24] MEDS: oxyCODONE/APAP 5/325 1 TAB TABLET PO PRN (03:01)
--- NOTE | 2021-10-24 06:49 | PDOC ---
Infectious Disease Note Subjective: Subjective Patient feels better Pain is under control On room air Vital Signs: Vital Signs Vital Signs Date Time Temp Pulse Resp B/P (MAP) Pulse Ox O2 Delivery O2 Flow Rate FiO2 10/24/21 03:31 91 Room Air 2.0 10/24/21 02:51 98.1 120 18 156/106 (123) 98.1 Physical Exam: PHYSICAL EXAM GENERAL: Alert, oriented x 3 male, lying in bed comfortably, in no acute distress. HEENT: Normocephalic, atraumatic. Anicteric. NECK: Supple. LUNGS: Clear bilaterally. HEART: S1, S2. ABDOMEN: Soft, obese. Bowel sounds present. EXTREMITIES: Chronic lymphedema, hyperkeratotic lesions. No skin breakdown noted. NEUROLOGIC: Alert, awake, oriented x 3, generalized weakness. PSYCHIATRIC: Calm and cooperative. Medications: Inpatient Meds: Medications reviewed. Labs: Lab Laboratory Tests Test 10/23/21 07:25 10/23/21 08:01 10/23/21 12:08 10/23/21 17:22 White Blood Count 15.0 x10^3/uL (4.0-11.0) Red Blood Count 3.23 x10^6/uL (4.30-5.70) Hemoglobin 8.3 g/dL (13.0-17.5) Hematocrit 24.8 % (39.0-53.0) Mean Corpuscular Volume 77 fL (79-100) Mean Corpuscular Hemoglobin 26 pg (25-35) Mean Corpuscular Hemoglobin Concent 34 g/dL (31-37) Red Cell Distribution Width 14.7 % (11.5-14.5) Platelet Count 535 x10^3/uL (140-400) Neutrophils (%) (Auto) 80 % (31-73) Lymphocytes (%) (Auto) 10 % (24-48) Monocytes (%) (Auto) 9 % (0-9) Eosinophils (%) (Auto) 1 % (0-3) Basophils (%) (Auto) 1 % (0-3) Neutrophils # (Auto) 12.0 x10^3/uL (1.8-7.7) Lymphocytes # (Auto) 1.5 x10^3/uL (1.0-4.8) Monocytes # (Auto) 1.3 x10^3/uL (0.0-1.1) Eosinophils # (Auto) 0.1 x10^3/uL (0.0-0.7) Basophils # (Auto) 0.1 x10^3/uL (0.0-0.2) Glucose (Fingerstick) 101 mg/dL (70-99) 96 mg/dL (70-99) 95 mg/dL (70-99) Test 10/23/21 19:36 Glucose (Fingerstick) 99 mg/dL (70-99) Objective: Assessment: 1. Leukocytosis. 2. Bacteremia, 1/4 bottles present on admission ,coag neg staph likley contaminant. 3. Generalized weakness. 4. Chronic lymphedema. 5. Hyponatremia. 6. History of gout. 7. Anemia. 8. Chronic left upper extremity pain from adhesive capsulitis. Plan: Plan of Care cont ceftriaxone and doxycycline Will de-escalate soon PT and OT as tolerated Pain control per primary Continue supportive care. SHELBI HOLDER MD Oct 24, 2021 06:49
[2021-10-24 07:00] VITALS: BP 155/97
[2021-10-24] MEDS: IPRATRPIUM/ALBUTEROL 0.5/2.5MG 3 ML NEBU. NEB SCH ×4 (08:15→20:26)
[2021-10-24 08:26] LABS: BASO # 0.1 x10^3/uL (0.0-0.2); BASO % 0 % (0-3); EOS # 0.1 x10^3/uL (0.0-0.7); EOS % 1 % (0-3); HEMATOCRIT 25.6 % (39.0-53.0); HEMOGLOBIN 8.3 g/dL (13.0-17.5); LYMPH # 1.7 x10^3/uL (1.0-4.8); LYMPH % 11 % (24-48); MEAN CORPUSCULAR HEMOGLOBIN 25 pg (25-35); MEAN CORPUSCULAR HGB CONC 32 g/dL (31-37); MEAN CORPUSCULAR VOLUME 76 fL (79-100); MONO # 1.3 x10^3/uL (0.0-1.1); MONO % 9 % (0-9); NEUT # 12.3 x10^3/uL (1.8-7.7); NEUT % 79 % (31-73); PLATELET COUNT 628 x10^3/uL (140-400); RED BLOOD COUNT 3.36 x10^6/uL (4.30-5.70); WHITE BLOOD COUNT 15.5 x10^3/uL (4.0-11.0)
[2021-10-24] MEDS: hydroCHLOROthiazide 25 MG TABLET PO SCH (08:50)
[2021-10-24] MEDS: LISINOPRIL 20 MG TABLET PO SCH (08:51)
[2021-10-24] MEDS: LACTOBACILLUS RHAMNOSUS GG 1 CAPSULE. PO SCH ×2 (08:51→22:25)
[2021-10-24] MEDS: DOXYCYCLINE HYCLATE 100 MG TABLET PO SCH ×2 (08:51→22:26)
[2021-10-24] MEDS: ALLOPURINOL 300 MG TABLET. PO SCH (08:51)
[2021-10-24] MEDS: MORPHINE ER 15 MG TABLET.ER PO SCH ×2 (08:54→22:26)
[2021-10-24] MEDS: AMMONIUM LACTATE 12% TOPICAL LOTION 225GM BOTTLE. TP SCH ×2 (09:00→22:27)
[2021-10-24 11:00] VITALS: BP 129/88
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
[2021-10-24] MEDS: cefTRIAXone IV Push 1 GM VIAL. IVP SCH (14:46)
[2021-10-24 15:00] VITALS: BP 143/93
[2021-10-24] MEDS: HYDROcodone/APAP 5/325MG 1 TAB TABLET PO PRN (15:05)
[2021-10-24] MEDS: MORPHINE SULFATE 2 MG/ML INJ. IV PRN (15:05)
[2021-10-24 19:00] VITALS: BP 145/101
[2021-10-24] MEDS: ENOXAPARIN 40 MG/0.4 ML SYRINGE. SQ SCH (22:25)
[2021-10-24 23:14] VITALS: BP 148/94
[2021-10-25 03:07] VITALS: BP 145/97
[2021-10-25] MEDS: IV NORMAL SALINE 1000ML BAG 1,000 ML IV SCH (05:50)
[2021-10-25 06:16] LABS: BASO # 0.1 x10^3/uL (0.0-0.2); BASO % 1 % (0-3); EOS # 0.1 x10^3/uL (0.0-0.7); EOS % 1 % (0-3); HEMATOCRIT 25.8 % (39.0-53.0); HEMOGLOBIN 8.3 g/dL (13.0-17.5); LYMPH # 1.6 x10^3/uL (1.0-4.8); LYMPH % 12 % (24-48); MEAN CORPUSCULAR HEMOGLOBIN 25 pg (25-35); MEAN CORPUSCULAR HGB CONC 32 g/dL (31-37); MEAN CORPUSCULAR VOLUME 77 fL (79-100); MONO # 0.8 x10^3/uL (0.0-1.1); MONO % 6 % (0-9); NEUT # 10.9 x10^3/uL (1.8-7.7); NEUT % 81 % (31-73); PLATELET COUNT 674 x10^3/uL (140-400); RED BLOOD COUNT 3.34 x10^6/uL (4.30-5.70); WHITE BLOOD COUNT 13.5 x10^3/uL (4.0-11.0)
[2021-10-25 07:00] VITALS: BP 147/93
--- NOTE | 2021-10-25 07:45 | NUR ---
Patient on 2 l of oxygen sats at 95 %. no complaints of discomfort. lungs sounds clear bilaterally.
--- NOTE | 2021-10-25 08:04 | NUR ---
Patient refused to have CT of head done at this time. Patient educated on the need to have the CT of head done at this time . Patient continue to refuse.
[2021-10-25] MEDS: AMMONIUM LACTATE 12% TOPICAL LOTION 225GM BOTTLE. TP SCH (09:00)
[2021-10-25] MEDS: LACTOBACILLUS RHAMNOSUS GG 1 CAPSULE. PO SCH (09:00)
[2021-10-25] MEDS: IPRATRPIUM/ALBUTEROL 0.5/2.5MG 3 ML NEBU. NEB SCH ×3 (09:16→16:05)
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
[2021-10-25] MEDS: ALLOPURINOL 300 MG TABLET. PO SCH (09:49)
[2021-10-25] MEDS: hydroCHLOROthiazide 25 MG TABLET PO SCH (09:49)
[2021-10-25] MEDS: LISINOPRIL 20 MG TABLET PO SCH (09:49)
[2021-10-25] MEDS: DOXYCYCLINE HYCLATE 100 MG TABLET PO SCH (09:50)
[2021-10-25] MEDS: MORPHINE ER 15 MG TABLET.ER PO SCH (09:54)
--- NOTE | 2021-10-25 10:13 | PDOC ---
Infectious Disease Note Subjective Subjective Patient feels better Pain is under control On room air ROS ROS no n/v/d/ Vital Sign Vital Signs Vital Signs Date Time Temp Pulse Resp B/P (MAP) Pulse Ox O2 Delivery O2 Flow Rate FiO2 10/25/21 09:54 Room Air 10/25/21 09:50 108 147/93 10/25/21 09:18 95 1.0 10/25/21 07:00 98.0 18 98.0 Physical Exam PHYSICAL EXAM GENERAL: Alert, oriented x 3 male, lying in bed comfortably, in no acute distress. HEENT: Normocephalic, atraumatic. Anicteric. NECK: Supple. LUNGS: Clear bilaterally. HEART: S1, S2. ABDOMEN: Soft, obese. Bowel sounds present. EXTREMITIES: Chronic lymphedema, hyperkeratotic lesions. No skin breakdown noted. NEUROLOGIC: Alert, awake, oriented x 3, generalized weakness. PSYCHIATRIC: Calm and cooperative. Labs Lab Laboratory Tests Test 10/24/21 12:18 10/24/21 17:24 10/24/21 19:33 10/25/21 05:05 Glucose (Fingerstick) 103 mg/dL (70-99) 88 mg/dL (70-99) 104 mg/dL (70-99) White Blood Count 13.5 x10^3/uL (4.0-11.0) Red Blood Count 3.34 x10^6/uL (4.30-5.70) Hemoglobin 8.3 g/dL (13.0-17.5) Hematocrit 25.8 % (39.0-53.0) Mean Corpuscular Volume 77 fL (79-100) Mean Corpuscular Hemoglobin 25 pg (25-35) Mean Corpuscular Hemoglobin Concent 32 g/dL (31-37) Red Cell Distribution Width 15.0 % (11.5-14.5) Platelet Count 674 x10^3/uL (140-400) Neutrophils (%) (Auto) 81 % (31-73) Lymphocytes (%) (Auto) 12 % (24-48) Monocytes (%) (Auto) 6 % (0-9) Eosinophils (%) (Auto) 1 % (0-3) Basophils (%) (Auto) 1 % (0-3) Neutrophils # (Auto) 10.9 x10^3/uL (1.8-7.7) Lymphocytes # (Auto) 1.6 x10^3/uL (1.0-4.8) Monocytes # (Auto) 0.8 x10^3/uL (0.0-1.1) Eosinophils # (Auto) 0.1 x10^3/uL (0.0-0.7) Basophils # (Auto) 0.1 x10^3/uL (0.0-0.2) Test 10/25/21 07:31 Glucose (Fingerstick) 106 mg/dL (70-99) Micro Microbiology 10/20/21 Blood Culture - 11/23 coag neg staph Objective Assessment 1. Leukocytosis. 2. Bacteremia, 11/23 bottles present on admission ,coag neg staph michaelley contaminant. 3. Generalized weakness. 4. Chronic lymphedema. 5. Hyponatremia. 6. History of gout. 7. Anemia. 8. Chronic left upper extremity pain from adhesive caps Plan Plan of Care cont ceftriaxone and doxycycline,, change to po cefdinir Will de-escalate soon PT and OT as tolerated Pain control per primary Continue supportive care. DONTRELL HOLDER MD Oct 25, 2021 10:13
[2021-10-25 11:00] VITALS: BP 162/104
[2021-10-25] MEDS ORDERED: CEFDINIR 300 MG CAPSULE PO SCH (11:00)
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
[2021-10-25] MEDS ORDERED: AMMO225L5 TP (12:40)
[2021-10-25] MEDS ORDERED: MORP-15 PO (12:40)
--- NOTE | 2021-10-25 12:41 | SNU/HH DC ---
DISCHARGE WITH HOME HEALTH DISCHARGE INFORMATION: Final Diagnosis: Problems Medical Problems: (1) Hypoalbuminemia Status: Acute (2) Hyponatremia Status: Acute (3) Pneumonia Status: Acute Condition on Discharge: Stable CODE STATUS: Code Status: Full HOME HEALTH: Face to Face: I certify this patient is under my care and that I, or a nurse practitioner or physician's orthotic assistant working with me, had a face to face encounter that meets the physician face to face encounter requirements with this patient on []. Medical Complications: Other (Chronic pain lymphedema) Longterm For: Assess & Educate Safety RN For Eval/Treatment: Yes Physical Therapy For: Evalulation/Treatment Occupational Therapy For: Evaluation/Treatment Home Health Aide For: Self-care MIRROR INSTALLER For: Community Resources Pt Meets Homebound Status: Unsteady balance w/ amb, POST DISCHARGE ORDERS: Activity Instructions for Disc: Activity as tolerated Weight Bearing Status after Di: No restrictions, As tolerated DIET AFTER DISCHARGE: Cardiac Wound/Incision Care: No wound care needed CHECKS AFTER DISCHARGE: Checks after discharge: Check blood press - daily TREATMENT/EQUIPMENT ORDERS: Adaptive Equipment Issued: Walker CERTIFICATION STATEMENT: Certification Statement: Certification Statement: Based on the above finding, I certify that this patient is confined to the home and needs intermittent senior care care, physical therapy and/or speech therapy, or continues to need occupational therapy.~ This patient is under my care, and I have initiated the establishment of the plan of care.~ This patient will be followed by myself or a community physician who will periodically review the plan of care. Home Meds Active Scripts Ammonium Lactate (Ammonium Lactate) 226 Gm Lotion, 1 MARIE TP BID for LE hyperkeratosis for 90 Days, #1 MISC Prov:CASTLE,NIAL K III DO 10/25/21 Morphine Sulfate (MORPHINE SULFATE ER) 15 Mg Tablet.er, 15 MG PO BID for . for 30 Days, #60 TAB.SR Prov:CASTLE,NIAL K III DO 10/25/21 Methylprednisolone (MEDROL) 4 Mg Tab.ds.pk, 1 PKG PO UD for ., #1 PKG Prov:CASTLE,NIAL K III DO 09/28/21 Lorazepam (ATIVAN) 0.5 Mg Tablet, 0.5 MG PO PRN Q6HRS PRN for ANXIETY / AGITATION for 10 Days, #20 TAB Prov:CASTLE,NIAL K III DO 09/28/21 Oxycodone/Apap 5-325 (PERCOCET 5-325 MG TABLET ) 1 Each Tablet, 1 TAB PO PRN Q4HRS PRN for MODERATE PAIN for 10 Days, #20 TAB Prov:ANJU SINGH III DO 09/28/21 Amlodipine Besylate (AMLODIPINE BESYLATE) 5 Mg Tablet, 5 MG PO DAILY for . for 30 Days, #30 TAB Prov:ANJU SINGH III DO 09/28/21 Naproxen Sodium (ANAPROX DS) 550 Mg Tablet, 1 TAB PO BID PRN for BACK PAIN for 15 Days, #30 TAB 0 Refills Prov:KULDEEP MOTNEIRO DO 06/19/21 Lisinopril (LISINOPRIL) 40 Mg Tablet, 1 TAB PO DAILY, #30 TAB 2 Refills Prov:KULDEEP MONTEIRO DO 06/19/21 [Ibuprofen] 600 MG TABLET No Conflict Check, 600 MG PO TID, #30 Prov:ALLYSON GALO MD 10/14/15 [Hydrochlorothiazide] 25 MG TABLET No Conflict Check, 25 MG PO DAILY, #30 Prov:ALLYSON GALO MD 10/14/15 Hydrocodone/Apap 5-325 (NORCO 5-325 TABLET) 1 Each Tablet, 1-2 EACH PO PRN Q6HRS, #30 as needed for pain Prov:ALLYSON GALO MD 10/14/15 Ibuprofen (IBUPROFEN) 800 Mg Tablet, 800 MG PO PRN TID, #20 TAB take with food or milk to avoid upsetting stomach Prov:VIOLET TALAVERA MD 01/12/14 Reported Medications Allopurinol (ALLOPURINOL) 300 Mg Tablet, 300 MG PO DAILY for gout 09/24/21 ANJU SINGH III DO Oct 25, 2021 12:41
--- NOTE | 2021-10-25 13:50 | NUR ---
Patient Oxygen level on room air at 87% , put patient on oxygen at 1 l via nasal cannula oxygen level at 90 5 , unable to asses levels ambulating due to difficulty to stand for patient. Addendum: 10/25/21 at 1355 by ZACHARY HORN LPN PATIENT DOES NOT HAVE ANY COMPLAINTS OF SHORTNESS OF BEATH WHEN NOT ON OXYGEN. UNABLE TO ASSESS OXYGEN WHILE AMBULATING.
--- NOTE | 2021-10-25 13:52 | NUR ---
patient oxygen level at 96 % on 2 l of oxygen no complaints of discomfort of shortness of breath.
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
[2021-10-25 15:00] VITALS: BP 127/90
[2021-10-25] MEDS: HYDROcodone/APAP 5/325MG 1 TAB TABLET PO PRN (16:21)
--- NOTE | 2021-10-25 17:11 | NUR ---
Patient discharged with discharge instructions for oxygen, home health and new medications. patient transported by [facility] via stretcher.
== END 2021-10-25 17:15 | disposition home health service (06) | DRG 871 ==
LOC: ER 09:53 → 5 NORTH 13:30 → ER 17:15
PROVIDERS: ADMIT Internal Medicine; ATTEND Internal Medicine
DX: A41.9 Sepsis, unspecified organism (principal); J69.0 Pneumonitis due to inhalation of food and vomit; E87.1 Hypo-osmolality and hyponatremia; N17.9 Acute kidney failure, unspecified; D64.9 Anemia, unspecified; E88.09 Other disorders of plasma-protein metabolism, not elsewhere classified; F12.90 Cannabis use, unspecified, uncomplicated; F41.9 Anxiety disorder, unspecified; I10 Essential (primary) hypertension; I89.0 Lymphedema, not elsewhere classified; M75.00 Adhesive capsulitis of unspecified shoulder; Z20.822 Contact with and (suspected) exposure to COVID-19; Z83.3 Family history of diabetes mellitus; Z99.3 Dependence on wheelchair; E66.9 Obesity, unspecified; F32.A Depression, unspecified; G89.29 Other chronic pain; M10.9 Gout, unspecified; Z79.899 Other long term (current) drug therapy; Z68.36 Body mass index [BMI] 36.0-36.9, adult
CPT/HCPCS: 36415; 71045; 80048; 80053; 80307; 81001; 82550; 82962; 83605; 83880; 84443; 84484; 84550; 85007; 85025; 87040; 87205; 87426; 87449; 93005; 94640; 94760; 96361; 96374; 96375; J0456; J0696; J1650; J2270; J3010; J3370; J7030; J7040; U0003; U0005; 99285-25; G0378